=== PATIENT | female | born 1990 | race Caucasian/White ===

== ENCOUNTER 2021-12-21 13:13 | Inpatient (IN) | payer BC ==
[~2021-12-21] VITALS: Ht 167.6 cm; Wt 77.2 kg
[2021-12-22] MEDS ORDERED: PEPCID AC10 MG PO (13:13)
[2021-12-22] MEDS ORDERED: IRON240 MG PO (13:14)
[2021-12-22] MEDS ORDERED: VITAMIN B-122000 MC1 PO (13:14)
[2021-12-22] MEDS ORDERED: PRENATAL MULTI1 EAC3 PO (13:14)
[2021-12-22] MEDS ORDERED: VITAMIN D31250 MC1 PO (13:14)
[2021-12-23] MEDS ORDERED: FOLIC ACID1 MG (12:11)
[2021-12-23] MEDS ORDERED: CALCI-MAX CAPS1 EACH PO (12:11)
--- NOTE | 2021-12-24 06:13 | NUR ---
0600-PATIENT STATES GETS FHT IN THE LLQ, TRINI HEARD IN LLQ AT 145
--- NOTE | 2021-12-24 08:58 | NUR ---
12/24/21 0858 Julita Fernandez 0848 PATIENT ARRIVES TO PACU UNRESPONSIVE TO PAIN, ORAL AIRWAY IN PLACE. RESP EVEN AND UNLABORED, MASK AT 10 LITERS, DECREASED TO 6 LITERS. DOPPLER DONE, HR 90-100. DR MIGUEL AT BEDSIDE. AWARE OF HEART RATE, ASKED THAT PATIENT HAVE BUMP UNDER RIGHT HIP. PATIENT ROLLED TO LEFT WITH PILLOW PLACED UNDER RIGHT HIP. 0856 PATIENT OPENING EYES. GIVES A THUMBS UP. FOLLOWS COMMANDS TO REMOVE OPEN MOUTH. ORAL AIRWAY REMOVED. PATIENT REPORTS AT 10. RESP EVEN AND UNLABORED, MASK CONTINUES AT 6 LITERS.
--- NOTE | 2021-12-24 10:29 | NUR ---
1015-PT ARRIVED TO [facility] ROOM 107 FROM PACU, PT SLEEPY, DENIES PAIN AT THIS TIME, VSS, FHTS BY DOPPLER 130
--- NOTE | 2021-12-24 11:37 | NUR ---
MEDICATED PT WITH ONE PERCOCET WITH CRACKER FOR CO DULL ACHE LOWER ABD
--- NOTE | 2021-12-24 14:37 | NUR ---
DR AWARE OF DECREASED URINE OUTPUT, LR BOLUS STARTED
--- NOTE | 2021-12-24 16:32 | NUR ---
PT SITTING UP REQUESTING CHICKEN BROTH, PT REPORTS FEELING BABY MOVING VS PRESSURE IN ABD, NO UC'S NOTED ON MONITOR
--- NOTE | 2021-12-24 17:55 | NUR ---
1750-ASSISTED PT UP TO STAND AT BEDSIDE, YASIR ACTIVITY WELL, NO DIZZINESS NOTED
--- NOTE | 2021-12-24 18:00 | NUR ---
1800-DR MIGUEL AWARE OF DECREASED URINE OUTPUT, TOTAL URINE OUTPUT SINCE ARRIVAL TO ROOM 107 200ML, ENC PT TO DRINK PO FLUIDS, BROTH AND ICE WATER GIVEN, LR 500ML BOLUS STARTED
--- NOTE | 2021-12-24 20:52 | NUR ---
2030: PT AWAKE AND ALERT IN BED VISITING WITH . VSS, RESP EVEN AND UNLABORED. DRESSING C/D/I. REPORTS YASIR PAIN LEVEL, 2/10. DENIES NAUSEA AND YASIR PO INTAKE WELL. TURKEY SAND AND FRESH ICE WATER PROVIDED. SCHED RX ADMINISTERED ORDERED, SEE PT EMAR. SCDS IN PLACE AND FANG DRAINING AT THE BEDSIDE. DRAINED FOR 150MLS CLEAR YELLOW URINE. PLACED ON EFM FOR QSHIFT FHT'S. POC DISCUSSED AND PT AGREEABLE. COMFORTABLE WITHOUT NEEDS AT THIS TIME. CALL LIGHT WITHIN REACH
--- NOTE | 2021-12-24 22:54 | NUR ---
1030: PT RESTS COMFORTABLY ON SIDE IN BED IN DARKENED ROOM. NO PHYSICAL S/S OF DISTRESS AT THIS TIME. CALL LIGHT WITHIN REACH
--- NOTE | 2021-12-24 23:10 | NUR ---
1100: PT WAKES, CALL FOR THIS RN. REPORTING 7/10 ABDOMINAL PAIN AND REQUESTS RX. ADMINISTERED ORDERED, SEE PT EMAR. VSS, RESP EVEN AND UNLABORED. LITER OF LR INFUSED, IV CONVERTED TO SL. PT TAKING SUFFICIENT AMOUNTS PO. DRESSING REMAINS C/D/I. FANG CONTS TO DRAIN AT THE BEDSIDE. EMPTIED FOR 150MLS CLEAR YELLOW URINE. NO FURTHER NEEDS VOICED, TO TRY AND REST. CALL LIGHT WITHIN REACH
--- NOTE | 2021-12-25 00:33 | NUR ---
0030: PT RESTS COMFORTABLY WITH EYES CLOSED IN DARKENED ROOM. RESP EVEN AND UNLABORED. LEFT UNDISTURBED AT THIS TIME. NO PHYSICAL S/S OF DISTRESS. CALL LIGHT WITHIN REACH
--- NOTE | 2021-12-25 03:31 | NUR ---
0300: PT CONTS TO REST COMFORTABLY WITH EYES CLOSED IN DARKENED ROOM. RESP EVEN AND UNLABORED. LEFT UNDISTURBED, CALL LIGHT WITHIN REACH
--- NOTE | 2021-12-25 04:11 | NUR ---
0400: PT WITH CALL FOR THIS RN. REPORTS ABDOMINAL PAIN THAT WOKE HER UP, UNSURE IF IT IS SURGICAL OR CRAMPING PAIN. PLACED ON TOCO ONLY. VSS, RESP EVEN AND UNLABORED. FANG CONTS TO DRAIN AT THE BEDSIDE. EMPTIED FOR 350MLS CLEAR YELLOW URINE. REQUESTS PAIN RX WHEN AVAILABLE IN 1 HOUR. NO FURTHER NEEDS, CALL LIGHT WITHIN REACH
--- NOTE | 2021-12-25 05:26 | NUR ---
0510: PAIN RX ADMINISTERED REQUESTED, SEE PT EMAR. REPORTS / INCREASING ABDOMINAL PAIN. DISCUSSED DANGLING AND AMBULATION WITH PT, PT DECLINES AT THIS TIME AND REQUESTS TO REST "A LITTLE LONGER." FANG DRAINED FOR 200MLS CLEAR YELLOW URINE. NO FURTHER NEEDS VOICED, CALL LIGHT WITHIN REACH
--- NOTE | 2021-12-25 06:21 | NUR ---
0615: PT AWAKE AND ALERT IN BED. REPORTS IMPROVING PAIN LEVEL WHILE AT REST. TOCO REMOVED. OCCASIONAL IRRITABILITY WITH OCCASIONAL MILD U/C'S NOTED. DANGLED AT THE BEDSIDE TO STAND, YASIR WELL. BECOMES TEARY WHEN BACK IN BED, REPORTS D/T PAIN. PAIN INTERVENTION OFFERED AND PT DECLINES. DENIES NEEDS, CALL LIGHT WITHIN REACH
--- NOTE | 2021-12-25 07:56 | NUR ---
ASSESSMENT COMPLETED, PT REQUESTED TO TAKE ADDITIONAL PERCOCET PO BEFORE TAKING FANG OUT
--- NOTE | 2021-12-25 10:01 | NUR ---
0930-FANG REMOVED, ASSISTED PT UP TO CHAIR, YASIR ACTIVITY WELL, FHTS 130 BY DOPPLER, PT REPORTS GOOD MOVEMENT
--- NOTE | 2021-12-25 10:29 | NUR ---
DR MIGUEL IN TO SEE PT
--- NOTE | 2021-12-25 10:37 | OR ---
[facility] [address] [place], [place] [address] Signed DATE OF OPERATION: 12/24/2021 SURGEON: Sergio Alston MD PREOPERATIVE DIAGNOSES: 1. Large right ovarian cyst. 2. Vuejdx-ydc-lsof . POSTOPERATIVE DIAGNOSIS: 1. Large right ovarian cyst. 2. Fldjws-esm-iato . PROCEDURES: Right ovarian cystectomy and right salpingectomy. SHORE MAN: Ray Gutierrez D.O. ANESTHESIA: General. ESTIMATED BLOOD LOSS: 25 mL. COMPLICATIONS: None. DRAINS: Kidd to bladder. FINDINGS: A 22-week gestation uterus. Right ovary with a large 6 x 10 x 15 cm simple right ovarian cyst on the lateral aspect of the right ovary with a fallopian tube stretched over the top of the cyst, there were no adhesions present. DESCRIPTION OF PROCEDURE: The patient was brought to the operating room, placed in supine position. After adequate general anesthesia was obtained, was prepped and draped in the usual sterile fashion. Kidd catheter placed in the bladder. A midline vertical skin incision was made starting above the umbilicus, around the umbilicus, and then below the umbilicus Electronically Signed By: SERGIO ALSTON MD 12/25/21 [facility] PATIENT NAME: GULSHAN PRADO OPERATIVE REPORT DATE OF : [birth year] REPORT #: [id number] PHYSICIAN: SERGIO ALSTON MD PCP: JULEE DANIELSON MD REPORT IS CONFIDENTIAL AND NOT TO BE RELEASED WITHOUT AUTHORIZATION [facility] [address] [place], [place] [address] Signed incising the skin with a scalpel. The subcutaneous tissue was dissected with Bovie. The fascia was identified and nicked with the scalpel and then the fascia opened using a scalpel while elevating the fascia with a Melita clamp. The midline abdominal musculature was then along the midline using finger dissection. The peritoneum was then exposed and was grasped with hemostats, elevated, nicked with Metzenbaum scissors and extended in a vertical fashion using Metzenbaum scissors. The right ovary was then easy to gently deliver out of the incision without needing to move the uterus. The pedicles were examined, noted to be close together, so curved Erin clamps were used to clamp across the pedicle on both sides and then scissors used to remove the cyst and the fallopian tube whole, without rupture. This was passed off the table. The two pedicles were free tied and stick-tied with 0-Vicryl suture. A small amount of tissue between the two pedicles was closed with a cjaqnl-fd-raxxe stitch of 0-Vicryl suture. Good hemostasis was noted. The right side of the pelvis was copiously irrigated, suctioned, and the pedicle re-observed, noted to have good hemostasis. At this point, the peritoneum was then closed using running stitch of 2-0 Vicryl suture. The abdominal musculature reapproximated using interrupted stitches of 0-Vicryl suture. The fascia closed using two running stitches of 0-PDS. Subcutaneous tissue was irrigated, suctioned, and examined, and any bleeding spots cauterized with the Bovie. Subcutaneous tissue was closed using interrupted stitches of 3-0 Vicryl suture. 20 ml of 0.5% Marcaine with Epinephrine was injected subcuticular in both sides of incision and then the skin reapproximated using skin clips. The patient tolerated the procedure well, went to the recovery room in good condition. Sponge, needle, and instrument count correct at the end of the procedure. The right tube and ovarian cysts were sent to Pathology for identification. heart tones were obtained before and after surgery in the recovery room. Sergio Alston MD MJB/MODL /[id number] cc: ISAMAR Rodriguez Electronically Signed By: SERGIO ALSTON MD 12/25/21 1037 PATIENT NAME: GULSHAN PRADO OPERATIVE REPORT DATE OF : [birth year] REPORT #: [id number] PHYSICIAN: SERGIO ALSTON MD PCP: JULEE DANIELSON MD REPORT IS CONFIDENTIAL AND NOT TO BE RELEASED WITHOUT AUTHORIZATION [address] [address] Signed Copies: ~ Electronically Signed By: SERGIO ALSTON MD 12/25/21 1037 PATIENT NAME: GULSHAN PRADO OPERATIVE REPORT DATE OF : [birth year] REPORT #: [id number] PHYSICIAN: SERGIO ALSTON MD PCP: JULEE DANIELSON MD REPORT IS CONFIDENTIAL AND NOT TO BE RELEASED WITHOUT AUTHORIZATION
--- NOTE | 2021-12-25 14:55 | NUR ---
PT RESTING, NO C/O
--- NOTE | 2021-12-25 15:59 | NUR ---
MEDICATED PT WITH PO PERCOCET FOR CO PAIN 11/15. ENC PT TO WALK AROUND. PT ABLE TO PASS GAS
--- NOTE | 2021-12-25 18:12 | NUR ---
1811-IV SITE WITHOUT REDDNESS OR SWELLING, FLUSHES EASILY WITH NS, WARM BROTH GIVEN FOR COMFORT, C/O IRRITATION IN THROAT
--- NOTE | 2021-12-25 21:27 | NUR ---
RN went to check on David She statedd that she had an air bubble in her right shoulder that was painful and would like a heating pad for it. RN brought in a K pad to help with discomfort. Patient stated that she felt some cramping and was in pain due to coughing. Pain medications could not be given yet but patient stated that was ok because it was managable and that she felt the heat pad would reduce pain.
--- NOTE | 2021-12-25 22:31 | NUR ---
At 2200 RN brought in percocet due to Katelynds pain which she states mainly towards coughing. She said that warm fluids had been helping with the coughing but tonnight have not. She said that she took one of her husbands cough drops earlier but it did not help either. RN asked if she would like warm tea but she refused. RN brought in mint gum and an insentive spirometer to see if either of those helped. Patient tried insentive spirometer but stated that was painful as well. Her cough is dry and nonproductive. 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 She stated feeling some uterine cramping that felt like period cramps that came and went. RN adjusted TOCO as none where see on the monitor. She stated they have gone away now and is not sure if they were related to needing to use the restroom or due to the coughing. RN will reassess after pain medication adminstration to see if they have relieved.
--- NOTE | 2021-12-25 23:36 | NUR ---
RN checked on patient after pain medication administration. She stated pain has been reduced and has not felt any uterine cramping for sometime. She is still coughing but it is less and does not want anything at this time.
--- NOTE | 2021-12-26 01:08 | NUR ---
David call RN into room due to feeling cramping/pain in her abdomen after using the restroom. She stated that her abdominal pain/ uterine cramping seems to get worse when she gets up to use the restroom. She stated that it will feel fine until than. TOCO was reapplied to watch contractions
--- NOTE | 2021-12-26 03:31 | NUR ---
0216 PT WAKES TO THIS RN ENTERING ROOM. SHE DENIES FEELING CRAMPING OR CONTRACTIONS, DOES REPORT BACK PAIN WHICH SHE ATTRIBUTES TO THE BED. ABD SOFT BY PALPATION. NO NEEDS AT THIS TIME. PT PLANS TO RETURN TO SLEEP.
--- NOTE | 2021-12-26 03:33 | NUR ---
PT UP TO BR TO VOID AND TOCO REPLACED ONCE SHE RETURNS TO BED. ABD SOFT. DENIES CRAMPING OR CONTRACTIONS. NO NEEDS AT THIS TIME.
--- NOTE | 2021-12-26 04:21 | NUR ---
David was up to the restroom. She stated that she only feels cramping when up to restroom and than it goes away. RN thinks it is due to her bladder pushing on uterus. Patient states her pain is 3/10 at this time. COughing has improved throughout shift.
--- NOTE | 2021-12-26 08:56 | NUR ---
0856-PT UP TO BR, STATES PAIN 09/17, ASSESSMENT COMPLETED
--- NOTE | 2021-12-26 09:03 | NUR ---
0900-FHTS BY DOPPLER 142
--- NOTE | 2021-12-26 10:40 | NUR ---
1030-PT RESTING, NO C/O
[2021-12-26] MEDS ORDERED: PERCOCET 5-3251 EACH PO (11:29)
--- NOTE | 2021-12-26 11:35 | NUR ---
1135-IV D/C'D, CATHETER TIP INTACT, DISCHARGE INSTRUCTIONS GIVEN, RX GIVEN
--- NOTE | 2021-12-26 11:57 | NUR ---
1155-PT DISCHARGED HOME VIA
--- NOTE | 2021-12-28 11:52 | DS ---
[facility] [address] [place], [place] [address] Signed ADMISSION DATE: 12/24/2021 DISCHARGE DATE: 12/26/2021 ADMISSION DIAGNOSIS: Large right ovarian cyst with a 22-week gestation . PROCEDURES: Laparotomy with right ovarian cystectomy and salpingectomy. HOSPITAL COURSE: The patient was admitted for same-day surgery, underwent the above procedure. Prior to the procedure, ultrasound was done to confirm cyst still present and heart tones were obtained. In the recovery room, heart tones were obtained. The patient was given indomethacin per rectum and the plan was to continue with oral indomethacin for 48 hours for prophylaxis against labor; however, the patient had previous gastric sleeve and was advised not to take nonsteroidals and since procedure went quickly with no manipulation of the uterus, it was decided to hold off on trying NSAIDs prophylactically. The patient did quite well postoperatively, had minimal pain, minimal nausea, a slight decrease in urine output first 12 hours, but responded with IV boluses. By the second postoperative day, the patient was doing well, tolerating food, moving and was ready to go home. DISCHARGE INSTRUCTIONS: Diet regular. Activity, no heavy lifting. She is to call if having any contractions or bleeding, otherwise follow up in 3-4 days for staple removal and for postop followup. Prescription given for Percocet 5/325 mg, #20. The patient can take Tylenol in between, but should limit amount of acetaminophen to maximum 3000 mg in 24 hours including Percocet. MD ML Zhu/JORGE L /[id number] Electronically Signed By: MICHELE MIGUEL MD 12/28/21 1152 PATIENT NAME: GULSHAN PRADO DISCHARGE SUMMARY DATE OF : [birth year] REPORT #: [id number] PHYSICIAN: MICHELE MIGUEL MD PCP: JULEE DANIELSON MD REPORT IS CONFIDENTIAL AND NOT TO BE RELEASED WITHOUT AUTHORIZATION [address] [place] [address] Signed Copies: ~ Electronically Signed By: MICHELE MIGUEL MD 12/28/21 1152 PATIENT NAME: GULSHAN PRADO DISCHARGE SUMMARY DATE OF : [birth year] REPORT #: [id number] PHYSICIAN: MICHELE MIGUEL MD PCP: JULEE DANIELSON MD REPORT IS CONFIDENTIAL AND NOT TO BE RELEASED WITHOUT AUTHORIZATION
--- NOTE | 2021-12-29 11:25 | PATH ---
[facility] [address] [place], [place] [address] Signed SPECIMEN(S): A RIGHT FALLOPIAN TUBE WITH CYST SPECIMEN SOURCE: A. RIGHT FALLOPIAN TUBE WITH CYST CLINICAL HISTORY: Large right ovarian cyst. FINAL PATHOLOGIC DIAGNOSIS: Ovary with cyst and fallopian tube, right, salpingo-oophorectomy: - Ovary: Serous cystadenoma (14.5 cm in greatest dimension), decidual reaction. - Fallopian tube: No histopathologic abnormality. COMMENT: The fallopian tube is elongated and adherent to serous cystadenoma, however no histopathologic abnormality with the tube is identified. NAL:cml:C2NR MICROSCOPIC EXAMINATION: Histologic sections of all submitted blocks are examined by light microscopy. These findings, together with the gross examination, support the pathologic diagnosis. GROSS DESCRIPTION: The specimen, labeled "NELI, A," and designated on the requisition "right fallopian tube with cyst," is received fresh and consists of the following Per Dr. Lane: "A 500 g cystic mass, 14.5 x 11.0 x 5.5 cm with an attached 1.2 x 1.3 cm, fimbriated end of an elongated, stretched out attached fallopian tube on the surface of the cyst, 14.0 x 0.7 cm. Also on the surface of the cyst is a 2.0 x 1.3 x 0.3 cm, firm, desouza nodule with clamping artifact, suspicious for ovary. The external surface of the cystic mass is desouza-pink and demonstrates prominent blood vessels. Several minute clear desouza nodules are present on the surface, up to 0.3 cm in greatest dimension. The outer surface of the cystic mass is inked blue, and the possible ovary is inked green. The specimen is opened to reveal a straw-colored, non-hemorrhagic, serous fluid. The inner surface of the cyst lining is desouza-pink and mostly smooth, with minuscule desouza nodules up to 0.2 cm in greatest dimension." PATIENT NAME: GULSHAN PRADO PATHOLOGY DATE OF : [birth year] REPORT #: [id number] PHYSICIAN: [facility] PCP: JULEE DANIELSON MD REPORT IS CONFIDENTIAL AND NOT TO BE RELEASED WITHOUT AUTHORIZATION [facility] [address] [place], [place] [address] Signed Violin Mechanic sections are submitted as follows: (A1) fallopian tube cross to cyst (A2) nodules on inner surface of cyst (A3) nodules on external surface of cyst (A4-A5) fallopian tube fimbria (entirely submitted, perpendicular) (A6) client relations representative section of ovary (A7) fallopian tube with cyst wall (A8) possible ovary with cyst wall (A9-A10) additional cyst wall AC (under the direct supervision of a pathologist) The Gross Description was prepared using a voice recognition system. The report was reviewed for accuracy; however, sound-alike word errors, addition and/or deletions may occur. If there is any question about this report, please contact Client Services. PERFORMING LABORATORY: The technical component was performed by [facility] [address] (CLIA# [id number]). [facility] [address] [address] (CLIA# [id number]). Diagnostician: Natalie Lane MD Pathologist Electronically Signed 12/29/2021 Copies: ~ PATIENT NAME: TRISH PRADOTERESSA CUTLER PATHOLOGY DATE OF : [birth year] REPORT #: [id number] PHYSICIAN: [facility] PCP: JULEE DANIELSON MD REPORT IS CONFIDENTIAL AND NOT TO BE RELEASED WITHOUT AUTHORIZATION
== END 2021-12-26 11:55 | disposition home or self-care (01) | DRG 819 ==
LOC: FBC 12-24 05:35 → DSVR 12-24 05:35 → FBC 12-24 07:00 → DS 12-24 09:45 → FBC 12-24 09:45 → EDSTATUS 12-24 09:45 → FBC 12-24 10:10
PROVIDERS: ADMIT General Practice; ATTEND General Practice
PROC: 0UT50ZZ Resection of Right Fallopian Tube, Open Approach (ICD-10-PCS; 2021-12-24)
PROC: 0UB00ZZ Excision of Right Ovary, Open Approach (ICD-10-PCS; principal; 2021-12-24 07:00)
DX: O34.82 Maternal care for other abnormalities of pelvic organs, second trimester (principal); N83.201 Unspecified ovarian cyst, right side; Z3A.22 22 weeks gestation of pregnancy; Z90.89 Acquired absence of other organs; Z98.84 Bariatric surgery status; Z79.899 Other long term (current) drug therapy
CPT/HCPCS: 36415; 85025; J0330; J0690; J1100; J1644; J1885; J2001; J2270; J2405; J2704; J2765; J2795; J3010; J7121

== ENCOUNTER 2022-04-22 07:45 | Inpatient (IN) | payer BC ==
[~2022-04-22] VITALS: Ht 167.6 cm; Wt 83.0 kg
[~2022-04-22 07:45] MED LIST: CALCI-MAX CAPS1 EACH PO; FOLIC ACID1 MG; IRON240 MG PO; PEPCID AC10 MG PO; PERCOCET 5-3251 EACH PO; PRENATAL MULTI1 EAC3 PO; VITAMIN B-122000 MC1 PO; VITAMIN D31250 MC1 PO
--- NOTE | 2022-04-22 11:09 | PR ---
[facility] [address] [facility] [place], [place] [address] Signed Progress Notes IP Datetime Report Generated by CPN: 04/22/2022 11:09 PROGRESS NOTES: [id number] Impression: Normal Progression of Labor Procedures: Artificial ROM Plan: Continue Present Management; Anticipate Vaginal Delivery VITAL SIGNS: [id number] Vital Signs: Reviewed; Within Normal Limits EXAM: [id number] Dilatation: 4.0 Effacement: 95 Station: 0 Contractions: every 1-3 minutes MEMBRANES: [id number] Membranes Status: Ruptured Comments: Comfortable with Epidural. Will continue monitoring. FETUS A: [id number] FHR Baseline: 125 Variability: Moderate 6-25bpm Accelerations: 15X15 Presentation: Vertex FETUS B: [id number] Signing Physician: Michele Miguel MD Copies: ~ *Electronically Signed* 04/22/22 1109 MICHELE MIGUEL MD PATIENT NAME: GULSHAN PRADO PROGRESS NOTE DATE OF : [birth year] PHYSICIAN: MICHELE MIGUEL MD RPT #: [id number] REPORT IS CONFIDENTIAL AND NOT TO BE RELEASED WITHOUT AUTHORIZATION
--- NOTE | 2022-04-22 18:40 | PR ---
[facility] [address] [facility] [place] [address] Signed PP Progress Notes Datetime Report Generated by CPN: 04/22/2022 18:39 SUBJECTIVE: [id number] Pain: Within Normal Limits Vital Signs: [id number] Vital Signs: Reviewed; Within Normal Limits IMPRESSION/PLAN/PROCEDURES: [id number] Other Impression: Thromboocytopenia Plan: Continue Present Management Progress Notes: Bleeding now stable, but CBC shows low Platelets (66). Normal PT, PTT, Fibrinogen. Will watch closely, recheck labs this evening Signing Physician: Michele Miguel MD Copies: ~ *Electronically Signed* 04/22/22 183 MICHELE MIGUEL MD PATIENT NAME: GULSHAN PRADO PROGRESS NOTE DATE OF : [birth year] PHYSICIAN: MICHELE MIGUEL MD RPT #: [id number] REPORT IS CONFIDENTIAL AND NOT TO BE RELEASED WITHOUT AUTHORIZATION
--- NOTE | 2022-04-22 21:51 | PR ---
[facility] [address] [facility] [place], [place] [address] Signed PP Progress Notes Datetime Report Generated by CPNora: 04/22/2022 21:50 SUBJECTIVE: [id number] Pain: Within Normal Limits Pain Comments: No RUQ abdominal pain Nausea/Vomiting: Denies Vital Signs: [id number] Vital Signs: Reviewed; Within Normal Limits Notable Details: Urine kymberly colored Abdomen/Uterus: Normal Lochia: Normal Extremities: Normal Exam Comments: No complaints, no dizziness. No cough (except some mucous in throat ), no SOB, no RUQ abdominal pain, minimal vaginal bleeding, no bruising. IMPRESSION/PLAN/PROCEDURES: [id number] Other Impression: HELLP Syndrome Plan: Continue Present Management Other Plans: MagSO4 IV for seizure prophylaxis Other Procedures: Hospitalist Consult Progress Notes: Repeat CBC shows stable Hgb/Hct (9.0/26.1) and stable but low Platelets (68), but elevated AST (236) and ALT (213). U/A ordered Hospitalist Consult (Dr. Estrada) - not sure if abnormalities related to , to bleeding, or to Covid-19 Plan repeating labs Signing Physician: Sergio Miguel MD Copies: ~ *Electronically Signed* 04/22/22 6922 SERGIO MIGUEL MD PATIENT NAME: GULSHAN PRADO PROGRESS NOTE DATE OF : [birth year] PHYSICIAN: SERGIO MIGUEL MD RPT #: [id number] REPORT IS CONFIDENTIAL AND NOT TO BE RELEASED WITHOUT AUTHORIZATION
--- NOTE | 2022-04-23 08:29 | PR ---
[facility] [address] [facility] [place], [place] [address] Signed PP Progress Notes Datetime Report Generated by CPNora: 04/23/2022 08:29 SUBJECTIVE: [id number] Pain: Within Normal Limits Pain Comments: No RUQ abdominal pain Nausea/Vomiting: Denies Vital Signs: [id number] Vital Signs: Reviewed; Within Normal Limits Notable Details: Urine kymberly colored Abdomen/Uterus: Normal Lochia: Normal Extremities: Normal Exam Comments: No complaints, no dizziness. No cough (except some mucous in throat ), no SOB, no RUQ abdominal pain, minimal vaginal bleeding, no bruising. IMPRESSION/PLAN/PROCEDURES: [id number] Other Impression: HELLP Syndrome, Improving Plan: Continue Present Management Other Plans: MagSO4 IV Procedures: None Other Procedures: Hospitalist Consult Progress Notes: Patient doing well, without complaint, tolerating MagSO4. Minimal bleeding. PLTs ilncreasing, but still low, LFT's still high but decreasing, Hgb/Hct slightly lower, Urine more clear. Continue MagSO4 until tomorrow. SCD's Continue monitoring labs q 12 hours until normal. Consider IV Fe prior to discharge. Appreciate Dr. Estrada's consult. Signing Physician: Sergio Miguel MD Copies: ~ *Electronically Signed* 04/23/22 08 SERGIO MIGUEL MD PATIENT NAME: GULSHAN PRADO PROGRESS NOTE DATE OF : [birth year] PHYSICIAN: SERGIO MIGUEL MD RPT #: [id number] REPORT IS CONFIDENTIAL AND NOT TO BE RELEASED WITHOUT AUTHORIZATION
--- NOTE | 2022-04-23 09:46 | NUR ---
PT DAILY WEIGHT: 85.75 KG, 189.1 LB
--- NOTE | 2022-04-24 11:43 | PR ---
[facility] [address] [facility] [place] [place] [address] Signed PP Progress Notes Datetime Report Generated by CPN: 04/24/2022 11:43 SUBJECTIVE: [id number] Pain: Within Normal Limits Pain Comments: No RUQ abdominal pain Nausea/Vomiting: Denies Vital Signs: [id number] Vital Signs: Reviewed; Within Normal Limits Notable Details: Hgb/Hct = 7.8/22.9, Plts = 127 Abdomen/Uterus: Normal Lochia: Normal Extremities: Normal Exam Comments: No complaints, no dizziness. No cough (except some mucous in throat ), no SOB, no RUQ abdominal pain, minimal vaginal bleeding, no bruising. IMPRESSION/PLAN/PROCEDURES: [id number] Impression: Normal Progression Other Impression: HELLP Syndrome, Improving Plan: Continue Present Management Other Plans: Stop MagSO4, D/C IV Procedures: Transfusion Other Procedures: Iron Transfusion (Feraheme) Progress Notes: Doing well, without complaint, feeling better since stopping MagSO4 this am. Plts returning to normal, LFT's decreasing toward normal. Anemia present, slight decrease since yesterday. Discussed Iron Transfusion, risks/benefits, need for 2nd dose in 3-7 days. Will give first dose today. Increase activity and diet as tolerated. Hopefully home tomorrow. Will confirm with Dr. Estrada Signing Physician: Michele Miguel MD Copies: ~ *Electronically Signed* 04/24/22 1143 MICHELE MIGUEL MD PATIENT NAME: GULSHAN PRADO PROGRESS NOTE DATE OF : [birth year] PHYSICIAN: MICHELE MIGUEL MD RPT #: [id number] REPORT IS CONFIDENTIAL AND NOT TO BE RELEASED WITHOUT AUTHORIZATION
--- NOTE | 2022-04-24 17:35 | EKG ---
[facility] [address] [facility] [place] [address] Signed Sinus bradycardia Otherwise normal ECG No previous ECGs available Confirmed by SALVADOR ADAMES MD ([id number]) on 04/24/2022 5:35:43 PM Electronically Signed By: SALVADOR ADAMES MD 04/24/22 1735 PATIENT NAME: GULSHAN PRADO HE Electrocardiogram DATE OF : 89 PHYSICIAN: SALVADOR ADAMES MD REPORT #: [id number] REPORT IS CONFIDENTIAL AND NOT TO BE RELEASED WITHOUT AUTHORIZATION
--- NOTE | 2022-04-25 10:13 | PR ---
[facility] [address] [facility] [place], [place] [address] Signed PP Progress Notes Datetime Report Generated by CPN: 04/25/2022 10:13 SUBJECTIVE: [id number] Pain: Within Normal Limits Pain Comments: No RUQ abdominal pain Nausea/Vomiting: Denies Vital Signs: [id number] Vital Signs: Reviewed; Within Normal Limits Notable Details: Hgb/Hct = 7.8/22.9, Plts = 127 Abdomen/Uterus: Normal Lochia: Normal Extremities: Normal Exam Comments: No complaints, no dizziness. No cough (except some mucous in throat ), no SOB, no RUQ abdominal pain, minimal vaginal bleeding, no bruising. IMPRESSION/PLAN/PROCEDURES: [id number] Impression: Normal Progression Other Impression: Anemia Plan: Discharge Other Plans: Stop MagSO4, D/C IV Procedures: Transfusion Other Procedures: Received 1st Feraheme Infusion yesterday Progress Notes: Doing well, without complaint, feeling better, tolerated Feraheme infusion well. Patient ready to go home. Dr. Estrada agrees with discharge, since patient much improved. Signing Physician: Michele Miguel MD Copies: ~ *Electronically Signed* 04/25/22 1013 MICHELE MIGUEL MD PATIENT NAME: GULSHAN PRADO PROGRESS NOTE DATE OF : [birth year] PHYSICIAN: MICHELE MIGUEL MD RPT #: [id number] REPORT IS CONFIDENTIAL AND NOT TO BE RELEASED WITHOUT AUTHORIZATION
== END 2022-04-25 12:25 | disposition home or self-care (01) | DRG 805 ==
LOC: FBCO 07:45 → FBC 08:20
PROVIDERS: ADMIT General Practice; ATTEND General Practice
PROC: 10E0XZZ Delivery of Products of Conception, External Approach (ICD-10-PCS; principal; 2022-04-22)
PROC: 0KQM0ZZ Repair Perineum Muscle, Open Approach (ICD-10-PCS; 2022-04-22)
PROC: 10907ZC Drainage of Amniotic Fluid, Therapeutic from Products of Conception, Via Natural or Artificial Opening (ICD-10-PCS; 2022-04-22)
PROC: 3E0R3BZ Introduction of Anesthetic Agent into Spinal Canal, Percutaneous Approach (ICD-10-PCS; 2022-04-22)
PROC: 00HU33Z Insertion of Infusion Device into Spinal Canal, Percutaneous Approach (ICD-10-PCS; 2022-04-22)
DX: O26.62 Liver and biliary tract disorders in childbirth (principal); U07.1 COVID-19; Z37.0 Single live birth; O98.52 Other viral diseases complicating childbirth; O99.12 Other diseases of the blood and blood-forming organs and certain disorders involving the immune mechanism complicating childbirth; O72.1 Other immediate postpartum hemorrhage; O14.24 HELLP syndrome, complicating childbirth; Z3A.39 39 weeks gestation of pregnancy; O70.1 Second degree perineal laceration during delivery; Z79.899 Other long term (current) drug therapy; D69.6 Thrombocytopenia, unspecified; K75.9 Inflammatory liver disease, unspecified; O99.02 Anemia complicating childbirth; D64.9 Anemia, unspecified; O99.62 Diseases of the digestive system complicating childbirth; K21.9 Gastro-esophageal reflux disease without esophagitis
CPT/HCPCS: 01961; 36415; 76705; 80053; 81001; 82247; 82248; 82728; 83010; 83540; 83550; 83615; 83735; 85025; 85027; 85060; 85384; 85610; 85730; 86038; 86255; 86704; 86803; 86850; 86900; 86901; 93005; 93010; A9270; J2210; J2405; J2590; J2795; J3475; J7121; Q0138

== ENCOUNTER 2023-05-25 07:50 | Day surgery (SDC) | payer BC ==
[2023-05-23 08:12] VITALS: BP 98/57
[~2023-05-25] VITALS: Ht 167.6 cm; Wt 73.6 kg
[~2023-05-25 07:50] MED LIST changes: +ZOLOFT50 MG PO
[2023-05-25 07:59] VITALS: BP 105/56
--- NOTE | 2023-05-25 08:19 | NUR ---
LE 0810: PT REPORTS FEELING NAUSEATED AFTER IV IS STARTED. SHE IS SAT UP AND GIVEN EMESIS BAG WELL AN ALCOHOL SWAB TO BREATH IN. LE 0815: ALCOHOL SWAB PROVES TO BE INEFFECTIVE. SHE HAS A SMALL AMOUNT OF EMESIS, APPROX 25ML. ORALIA GARZA IS ASKED TO CALL INTO OR3 AND ASK LEASING ASSOCIATE FOR AN ORDER FOR IV ANTIEMETIC. VERBAL ORDER FOR 4MG ZOFRAN IS GIVEN. LE 0820: PT GIVEN 4MG OF ZOFRAN
--- NOTE | 2023-05-25 10:51 | NUR ---
05/25/23 1051 Amber Castillo PT INTO PACU AT 1043. SAO2 100% ON RA. ICE TO ABDOMEN. DRESSING CDI.
[2023-05-25 11:42] VITALS: BP 90/48
--- NOTE | 2023-05-25 11:49 | NUR ---
LE 1130: PT IS BACK TO DS FROM PACU. SHE IS REPORTING NAUSEA. SHE IS GIVEN COMPAZINE. WATER ON BEDSIDE TABLE. CALL LIGHT WITHIN REACH. NO ADDITIONAL NEEDS OR CONCERNS AT THIS TIME.
[2023-05-25 12:35] VITALS: BP 84/45
--- NOTE | 2023-05-25 12:36 | NUR ---
LE 1230: PT IS TOLERATING SIPS OF WATER. SHE REPORTS THAT HER NAUSEA HAS RESOLVED. SHE WOULD LIKE TO WAIT TO TRY EATING A LITTLE BIT LONGER. IS AT THE BEDSIDE. CALL LIGHT WITHIN REACH. DC CRITERIA IS DISCUSSED WITH PT AND . NO ADDITIONAL NEEDS OR CONCNERS AT THIS TIME.
--- NOTE | 2023-05-25 12:37 | OR ---
[facility] [address] [place], [place] [address] Signed DATE OF OPERATION: 05/25/2023 SURGEON: Jostin Mcdaniels MD PREOPERATIVE DIAGNOSES: 1. Chronic cholecystitis and cholelithiasis. 2. Biliary colic. POSTOPERATIVE DIAGNOSES: 1. Chronic cholecystitis and cholelithiasis. 2. Biliary colic. PROCEDURE: Laparoscopic cholecystectomy with intraoperative cholangiogram. ESTIMATED BLOOD LOSS: None. INDICATIONS: David is a 33-year-old female, who had undergone her gastric sleeve procedure in [place] in 2019 at the age of 30. She went from 277 pounds down to 145 pounds. She just had her 1st baby a year ago. During the , she was up to 197 pounds. She is now back down to 165 pounds. During her , she had an ultrasound performed and she had multiple gallstones. The gallbladder wall was just a little thick at 6 mm. The liver and common bile duct were unremarkable. She had multiple episodes of biliary colic during that . She has had additional episodes of biliary colic over this last year. She said the last one last well over an hour. She told me her is an environmental resource specialist and he has to be going 6 hours or more from where they live. 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 She was quite concerned that she might end up in the hospital by herself with her son. She had been to her primary care provider. In March, her total bilirubin was normal, but the AST and ALT were up just a little bit at 119 and 159. Alkaline phosphatase was normal at 80. Lipase also normal at 27. Because of the increasing severity and frequency of her episodes of biliary colic, she had been asked to see me as a local general surgeon. In the office, I gave David our brochure on the gallbladder. We had reviewed the location and function of the gallbladder. We discussed laparoscopic versus open cholecystectomy. She understands the expected intraop and postop course. There is risk including, but not limited to bleeding, infection, scarring, change in contour of the skin, damage to bowel, damage to the main bile duct, incisional hernias and other unforeseen comorbidities. She had expressed understanding and wished to proceed. Electronically Signed By: JOSTIN MCDANIELS MD 05/25/23 1237 PATIENT NAME: DAVID PRADO OPERATIVE REPORT DATE OF : [birth year] REPORT #: [id number] PHYSICIAN: JOSTIN MCDANIELS MD PCP: TAYLER DANIELSON MD REPORT IS CONFIDENTIAL AND NOT TO BE RELEASED WITHOUT AUTHORIZATION [facility] [address] [place], [place] [address] Signed DESCRIPTION OF PROCEDURE: I met with David and her in our preop area. After answering their questions, we took David into the operating room. She was placed in the supine position under general endotracheal tube anesthesia. She was given preoperative antibiotics along with subcutaneous heparin. SCDs were utilized. She was then prepped and draped in the usual sterile fashion. She has had a previous periumbilical incision. We utilized the scar just above the umbilicus and we developed that vertically. We went down the abdomen and we found a small 8-10 mm fascial defect from her previous surgery. We brought the falciform ligament up, we divided it and secured each end with 2-0 Vicryl ties. We brought the peritoneum up and opened up carefully and entered the abdomen under direct visualization without difficulty. We inserted our Yesenia trocar. The abdomen was insufflated and we looked around the abdomen with our camera. She is very fortunate that she has very little if any scar tissue. We can see that her antrum remains intact but the top of the stomach of course is gone. Her gallbladder was not particularly concerning. We looked down in the pelvis and she had little or no adhesions from what we could see. We then placed our remaining three trocars under direct visualization without difficulty. The gallbladder was then grasped and elevated in the right upper quadrant. We had taken pictures throughout for photodocumentation. We carefully elevated the gallbladder and developed the triangle of Calot carefully and bluntly with our [place] dissector. We put two clips on the cystic artery and it was divided. We could see the common bile duct coming up the portal triad as she is quite thin. We went and placed our intraoperative cholangiocatheter into the cystic duct. Intraoperative cholangiogram was performed. We can see the cystic duct came over top of her common bile duct on its way down towards the duodenum. We saw the common duct fill and go back up into the liver. We then secured the cystic duct stump with a PDS Endoloop and two clips were placed across the cystic duct stump to robbin its location. After this, we slowly and carefully took the gallbladder off the gallbladder fossa with the help of cautery and placed into an EndoCatch bag. We then used our laparoscopic suturing device to pass 0-Vicryl suture on either side of the fascia of the subxiphoid trocar site. This was tied down to close this fascia primarily. After this, all the gas was allowed to escape and all the trocars were removed along with the gallbladder. The gallbladder was passed off the table to our circulating nurse for photodocumentation. She had multiple small 2-3 mm cholesterol stones. We then closed her supraumbilical trocar site with interrupted [id number] and simple 0-Vicryl sutures. Local anesthetic was copiously injected into all trocar sites. Each trocar site was irrigated and suctioned out until clear. The skin and dermis of each trocar site was closed with interrupted 3-0 subcuticular and Monocryl sutures. Dry gauze and tape was applied to all incisions. After this, David was awakened from her anesthesia, extubated in the OR, and taken to recovery room in stable condition. Electronically Signed By: JOSTIN MDCANIELS MD 05/25/23 1237 PATIENT NAME: DAVID PRADO OPERATIVE REPORT DATE OF : 89 REPORT #: [id number] PHYSICIAN: JOSTIN MCDANIELS MD PCP: TAYLER DANIELSON MD REPORT IS CONFIDENTIAL AND NOT TO BE RELEASED WITHOUT AUTHORIZATION [address] [address] Signed Jostin Mcdaniels MD ALB/MODL /[id number] cc: MD Tayler Lanier MD Copies: JOSTIN MCDANIELS MD ~ Electronically Signed By: JOSTIN MCDANIELS MD 05/25/23 1237 PATIENT NAME: DAVID PRADO OPERATIVE REPORT DATE OF : [birth year] REPORT #: [id number] PHYSICIAN: JOSTIN MCDANIELS MD PCP: TAYLER DANIELSON MD REPORT IS CONFIDENTIAL AND NOT TO BE RELEASED WITHOUT AUTHORIZATION
[2023-05-25 13:32] VITALS: BP 88/47
--- NOTE | 2023-05-25 13:34 | NUR ---
PT REPORTS NO PAIN OR NAUSEA. SHE IS OPEN TO TRYING SOME JELLO AND DRINKING MORE WATER. SHE REPORTS JUST BEING REALLY SLEEPY. CALL LIGHT STILL WITHIN REACH. IS AT THE BEDSIDE. NO ADDITIONAL NEEDS OR CONCERNS.
[2023-05-25 14:40] VITALS: BP 100/47
--- NOTE | 2023-05-25 14:50 | NUR ---
LE 1430: PT IS HELPED UP OUT OF BED TO USE THE BATHROOM. SHE IS ABLE TO AMBULATE INDEPENDENTLY. SHE IS ABLE TO VOID 200MLS, THEN AMBULATE BACK TO HER ROOM. SHE DOES REPORT MILD NAUSEA. LE 1445: DR. MCDANIELS IS CALLED AND ASKED FOR A VERBAL ORDER OF ZOFRAN ODT 8MG.
--- NOTE | 2023-05-25 15:01 | NUR ---
LE 1455: PT IS GIVEN 8MG ZOFRAN ODT. LE 1458: PT AND ARE GIVEN VERBAL AND WRITTEN DC INSTRUCTIONS. THEY BOTH VERBALIZE UNDERSTANDING. NO QUESTIONS ASKED AT THIS TIME. SHE IS EDUCATED ON HOW TO BEST DRESS HERSELF WHEN SHE IS READY TO DO SO. AND TO OPEN HER CURTAIN WHEN SHE IS READY.
--- NOTE | 2023-05-25 15:20 | NUR ---
SABRA 1515: PT IS TAKEN TO PERSONAL VEHICLE VIA WC. SHE IS ABLE TO TRANSFER HERSELF FROM WC TO CAR WITHOUT ISSUES.
--- NOTE | 2023-05-31 12:05 | PATH ---
[facility] [address] [place], [place] [address] Signed SPECIMEN(S): A GALLBLADDER WITH STONES SPECIMEN SOURCE: A. GALLBLADDER WITH STONES CLINICAL HISTORY: Gallbladder with stones. Calculus of gallbladder with chronic cholecystitis. FINAL PATHOLOGIC DIAGNOSIS: Gallbladder with stones: - Chronic calculus cholecystitis. - Mucosal cholesterolosis. JVR:kamala MICROSCOPIC EXAMINATION: Histologic sections of all submitted blocks are examined by light microscopy. These findings, together with the gross examination, support the pathologic diagnosis. GROSS DESCRIPTION: The specimen, labeled and designated "Anita, gallbladder with stones," is received in formalin and consists of Specimen: Previously opened gallbladder. Dimensions: 6.3 x 3.3 x 1.3 cm. Serosa: Green to violaceous and wrinkled with a full-thickness defect, 6.0 cm in greatest dimension. Cystic Duct: Unobstructed. Calculi: Within the container are multiple brown multifaceted calculi, 1.3 x 1.1 x 0.3 cm in aggregate. Mucosa: Green and velvety with yellow flecking. Wall thickness: 0.3 cm. Lymph node: No pericystic lymph nodes are grossly identified. Additional: No polyps or lesions are seen. Enterprise Application Developer sections are submitted in (A1). RADHA (under the direct supervision of a pathologist) The Gross Description was prepared using a voice recognition system. The report was reviewed for accuracy; however, sound-alike word errors, addition and/or deletions may occur. If there is any question about this report, please contact Client Services. PERFORMING LABORATORY: PATIENT NAME: GULSHAN PRADO PATHOLOGY DATE OF : [birth year] REPORT #: [id number] PHYSICIAN: RILEY SHAH PCP: JULEE DANIELSON MD REPORT IS CONFIDENTIAL AND NOT TO BE RELEASED WITHOUT AUTHORIZATION [address], [place] [address] Signed Technical component was performed by [facility], [address] [place] [address] (CLIA# [id number]). Professional interpretation was performed by [facility] [address] [address] (CLIA#: [id number]). Diagnostician: Contreras Kendall MD Pathologist Electronically Signed 05/31/2023 Copies: ~ PATIENT NAME: GULSHAN PRADO PATHOLOGY DATE OF : [birth year] REPORT #: [id number] PHYSICIAN: RILEY SHAH PCP: JULEE DANIELSON MD REPORT IS CONFIDENTIAL AND NOT TO BE RELEASED WITHOUT AUTHORIZATION
== END 2023-05-25 15:14 | disposition home or self-care (01) ==
LOC: DS 07:50
PROVIDERS: ATTEND Colon & Rectal Surgery
PROC: 0FT44ZZ Resection of Gallbladder, Percutaneous Endoscopic Approach (ICD-10-PCS; principal; 2023-05-25 09:00)
DX: K80.10 Calculus of gallbladder with chronic cholecystitis without obstruction (principal); Z98.84 Bariatric surgery status
CPT/HCPCS: 00790; 74300; A9270; J0131; J0690; J0780; J1100; J1644; J1885; J2001; J2405; J2704; J3010; J3475; J3490; J7121; Q9967